=== PATIENT | female | born 1975 | race Caucasian/White ===

== ENCOUNTER 2016-12-11 11:05 | Day surgery (SDC) | payer OTHER ==
[~2016-12-11 11:05] MED LIST: ceFAZolin 2 GM/DEXTROSE 100 ML IV ONE
[2016-12-11] MEDS ORDERED: CEFAZOLIN 2 GM/DEXTROSE/100 ML BAG IV ONE (11:35)
[2016-12-11] MEDS ORDERED: LR 1,000 ML IV ONE (11:38)
[2016-12-11] MEDS ORDERED: BUPIVACAINE/EPI 0.5% 30 ML SDV ONE (12:02)
[2016-12-11] MEDS ORDERED: LIDO/EPI 1% **for epidural** 30 ML SDV ONE (12:03)
[2016-12-11] MEDS ORDERED: PROPOFOL/EMULSION 500 MG/50 ML BOTTLE IV ONE (12:15)
[2016-12-11] MEDS ORDERED: MIDAZOLAM 2 MG/2 ML VIAL ONE (12:15)
[2016-12-11] MEDS ORDERED: fentaNYL 100 MCG/2 ML INJ ONE ×3 (12:16→14:07)
[2016-12-11] MEDS ORDERED: OXYCODONE/APAP 5/325 TAB PO PRN (13:55)
[2016-12-11] MEDS ORDERED: ONDANSETRON 4 MG/2 ML VIAL IVP PRN (13:55)
[2016-12-11] MEDS ORDERED: ONDANSETRON DISINTEGRATING 4 MG TAB PO PRN (13:55)
--- NOTE | 2016-12-11 13:55 | POSTOPPROG ---
Post Op Note Date of Operation: 12/11/16 Surgeon: Jeana Herbert Graphic Design Intern: Robert Herbert Anesthesia: GET(General Endotracheal) Pre-op Diagnosis: Left knee persistent medial compartment pain Post-op Diagnosis: Left knee patellar chondromalacia, MFC chondral defect, synovitis Procedure: Left knee arthroscopy, synovectomy, chondroplasty, MFC microfracture Findings: As above, please see full dictation for details. Inf/Abcess present in the surg proc area at time of surgery?: No Depth: Deep Incisional (Fascial) EBL: Minimal
[2016-12-11] MEDS ORDERED: OXYCODONE/APAP 5/325 TAB ONE (14:27)
--- NOTE | 2016-12-11 14:48 | GOP ---
[f rep st] OPERATIVE REPORT DATE OF OPERATION: 12/11/2016 SURGEON: Nino Wooten MD RELIGIOUS HEALER: Jeana Herbert PA-C. ANESTHESIA: General. ANESTHESIOLOGIST: Dr. Falk. PREOPERATIVE DIAGNOSIS: Left knee persistent medial compartment pain, consistent with medial meniscus tear or chondral defect. POSTOPERATIVE DIAGNOSIS: 1. Left knee medial femoral condyle full-thickness chondral defect. 2. Left knee patellar chondromalacia. 3. Left knee intra-articular synovitis with infrapatellar and suprapatellar plica. PROCEDURE PERFORMED: 1. Left knee arthroscopic microfracture procedure of medial femoral condyle chondral defect. 2. Left knee arthroscopic patellar chondroplasty. 3. Left knee arthroscopic synovectomy with ablation of fat pad, infra and suprapatellar plica. FINDINGS: EUA was with stable knee throughout. ROM of -3 to 140. No effusion. Arthroscopic findings: 1. Suprapatellar pouch was clear of any loose bodies. Moderate synovitis. Medial and lateral-based suprapatellar plica. Gutters clear. No loose bodies. 2. Patellofemoral joint with pristine trochlear chondral surface. The median ridge of the patella was notable for approximately 10 x 10 area of grade 2 chondromalacia. 3. Notch was with grade 1 infrapatellar plica and normal ACL, PCL. Fat pad was somewhat hypertrophic and synovitic. 4. Lateral compartment was normal, with only very mild chondromalacia and a small area of fraying of the lateral meniscus. Normal popliteus tendon. Chondral surfaces otherwise normal. 5. Medial compartment was with normal medial meniscus. There was a 10 x 15 mm , that is medial to lateral by anterior to posterior, full-thickness chondral defect with a large chondral flap. The remainder of the chondral surfaces were normal throughout. 6. Posteromedial and posterolateral compartments were with intact meniscal roots, no loose bodies. INDICATIONS: A 41-year-old female, who has failed greater than 1 year of nonoperative care for her left knee. She initially presented to [facility] with medial compartment pain and has had persistent medial compartment pain as her primary complaint. Due to cardiac condition and indwelling pacemaker, the patient has not been eligible for an MRI. After failing extensive and exhaustive conservative care, she elected to proceed with left knee diagnostic arthroscopy to both diagnose and treat her knee condition. The risks, benefits, and alternatives were discussed with the patient. She received preoperative cardiac and medical clearance with perioperative planning. The risks, benefits , and alternatives of the surgery were described to the patient. She provided a signed and witnessed consent, which was placed in her chart. Please see history and physical for additional information. DESCRIPTION OF PROCEDURE: The patient was identified in the preoperative holding area and her left knee was signed and designated as the operative site. She was confirmed in right lower extremity ALEENA hose and SCDs. She was treated with 2 g IV prophylactic cefazolin per protocol. She was taken back to the operating room, placed supine on the OR table, and general anesthesia was obtained. The patient had her right lower extremity placed in a well-padded leg rajput. Left lower extremity was wrapped proximally with cast padding and nonsterile tourniquet, and then prepped and draped in the usual sterile manner. Standard anterolateral and anteromedial scope portals were established with a # 11 blade. Complete diagnostic arthroscopy was performed with findings listed above. The infrapatellar plica and fat pad were debrided with both a full- radius shaver and the ArthroCare wand in order to facilitate viewing and working from both portals, as well as eliminate the synovitis in this portion of the knee, particularly the prominent fat pad and synovitis just anterior to the medial compartment. Focus was placed on the patient's medial femoral condyle chondral defect. This was probed and the defect was found to be full-thickness, large, medially based , unstable and delaminated. The full-radius shaver and basket resection tools were used to carefully debride and remove the unstable and torn segments of the chondral surface. Once this was completed, varying angle curettes was used through both portals to establish a well-shouldered border circumferentially around the edges of the lesion. The curette was used to debride the calcified cartilage layer down to subchondral bone. Once the lesion was prepared throughout, standard microfracture technique was performed. Next, multiple pick holes were placed at appropriate intervals within the lesion, working from the periphery to the center portion of the lesion, using the LoopNet picks. Pump pressure was dropped to assure appropriate cancellous bleeding and fat droplets from each of the microfracture sites. Once this work was completed, the knee was placed in figure-4 position. Using the full-radius shaver, the small areas of chondromalacia and/or synovial proliferation were resected back to a stable base. Once this was completed, the knee was placed in full extension on the OR table. The ArthroCare wand was then advanced up into the suprapatellar pouch. The 2 plica extensions of the capsule were divided and ablated out to the level of the capsule medially and laterally. Next, using the full-radius shaver, the patellar chondromalacia was treated with standard chondroplasty technique, with resection back to a stable base. Only the unstable chondral flap segments were resected back and great care was taken to avoid any deepening of the lesion. Once this work was completed, the knee was swept throughout to assure appropriate hemostasis with drop in pump pressure. Once all work was completed throughout the knee, the excess saline was evacuated from the knee. The portals were closed with interrupted 3-0 nylon sutures. Sterile postoperative surgical dressings were applied. A ALEENA hose was applied. The anesthesia service then took over to wake her up. TOURNIQUET TIME: None. DRAINS: None. SPECIMENS: None. ESTIMATED BLOOD LOSS: Minimal. IMPLANTS: None. COMPLICATIONS: None. DISPOSITION: The patient was extubated and transferred to the PACU in stable condition. She will remain NWB LLE and use CPM 6-8 hours/day per microfracture protocol for 6 weeks post-op. /[id number]/MODL MTDD
[2016-12-11] MEDS ORDERED: HYDROmorphONE/DILAUDID 1 MG/ML SYR ONE (14:52)
== END 2016-12-11 16:30 | disposition home or self-care (01) ==
LOC: FSGY 11:05
PROVIDERS: ATTEND Orthopaedic Surgery
PROC: 0SBD4ZZ Excision of Left Knee Joint, Percutaneous Endoscopic Approach (ICD-10-PCS; principal; 2016-12-11 13:00)
DX: M22.42 Chondromalacia patellae, left knee (principal); M65.862 Other synovitis and tenosynovitis, left lower leg
CPT/HCPCS: J0171; J0690; J1170; J2250; J2704; J3010

== ENCOUNTER → 2018-08-12 | Outpatient (CLI) | payer OTHER ==
[~2018-08-12] MED LIST changes: +IOPAMIDOL (ISOVUE-300) 100 ML BTL ONE; -ceFAZolin 2 GM/DEXTROSE 100 ML IV ONE
== END | disposition home or self-care (01) ==
LOC: FIMAGING 14:10
PROVIDERS: ATTEND Physician Assistant
DX: R10.11 Right upper quadrant pain (principal); K83.8 Other specified diseases of biliary tract; Z90.49 Acquired absence of other specified parts of digestive tract
CPT/HCPCS: Q9967